=== PATIENT | female | born 1960 | race Caucasian/White ===

== ENCOUNTER → 2016-07-13 | Outpatient (CLI) | payer OTHER ==
[~2016-07-13] MED LIST: FISH OIL 1,0001 CAP PO; LOTREL 5/10 MG1 CAP PO; LOTREL PO; ORTHO TRI-7 DAYS X PO; SINGULAIR PO
--- NOTE | ~2016-07-13 | EKG ---
PATIENT: JONE BRUMFIELD UNIT #: [id number] Ventricular Rate: 54 BPM Atrial Rate: 54 BPM P-R Interval: 130 ms QRS Duration: 80 ms Q-T Interval: 462 ms QTC Calculation(Bezet): 438 ms P [place]: 42 degrees Calculated R [place]: 2 degrees Calculated T [place]: 26 degrees Diagnosis Line: Sinus bradycardia Diagnosis Line: Otherwise normal ECG Diagnosis Line: When compared with ECG of 12-OCT-2013 04:01, Diagnosis Line: No significant change was found Diagnosis Line: Confirmed by ALYCIA STALLINGS MD ([id number]) on 07/15/2016 Diagnosis Line: 9:31:04 AM INTERPRETING MD: CHANDRAKANT FELIX
[2016-07-13 15:28] LABS: HEMATOCRIT 37.7 % (35.0-45.0); HEMOGLOBIN 12.6 gm/dL (12.0-16.0); MEAN CELL VOLUME 91.4 FL (83-96); MEAN CORPUSCULAR HEMOGLOBIN 30.7 PG (28-34); MEAN CORPUSCULAR HGB CONC 33.6 g/dL (30-36); MEAN PLATELET VOLUME 8.3 FL (6.5-11.5); RED BLOOD COUNT 4.12 X10e (3.90-5.30); RED CELL DISTRIBUTION WIDTH 12.7 % (11.0-15.5); WHITE BLOOD COUNT 9.6 X10e3 (4.0-10.5)
[2016-07-13 16:20] LABS: BLOOD UREA NITROGEN 10 mg/dL (9-23); BUN/CREATININE RATIO 14.28; CALCIUM SERUM 8.7 mg/dL (8.4-10.2); CARBON DIOXIDE 23 mmol/L (22-31); CHLORIDE 107 mmol/L (100-111); CREATININE SERUM 0.7 mg/dL (0.6-1.4); GLOM FILT RATE Estimated ABOVE60 mL/min (>60); GLUCOSE FASTING 96 mg/dL (70-110); POTASSIUM 4.2 mmol/L (3.5-5.1); SODIUM 139 mmol/L (135-145)
== END | disposition home or self-care (01) ==
LOC: CLAB 15:07
PROVIDERS: Specialist
DX: J32.9 Chronic sinusitis, unspecified (principal); R00.1 Bradycardia, unspecified
CPT/HCPCS: 36415; 80048; 85027; 93005